=== PATIENT | male | born 1995 | race African-American/Black ===

== ENCOUNTER 2020-04-15 17:19 | Inpatient (IN) | payer BC ==
[~2020-04-15] VITALS: Ht 195.6 cm; Wt 76.2 kg
[2020-04-15] MEDS ORDERED: ALBUTEROL (0.083%) 2.5MG/3ML NEB HHN STA (17:34)
[2020-04-15] MEDS ORDERED: METHYLPREDNISOLONE SOD SUCC 125 MG/2 ML VIAL IV STA (17:34)
[2020-04-15] MEDS ORDERED: IPRATROPIUM BROMIDE (0.02%) 0.5MG/2.5ML NEB HHN STA (17:34)
[2020-04-15] MEDS ORDERED: SODIUM CHLORIDE 0.9% 1000ML BAG (SEPSIS BOLUS) IV ONE (17:45)
[2020-04-15 18:01] LABS: HEMATOCRIT. 26.7 % (42.0-52.0); HEMOGLOBIN. 9.2 g/dL (14.0-18.0); MEAN CORPUSCULAR HEMOGLOBIN 32.2 pg (28.0-32.0); MEAN CORPUSCULAR VOLUME 93.1 fL (80.0-94.0); MEAN PLATELET VOLUME 6.6 fl (7.4-10.4); RED BLOOD CELL COUNT 2.87 mill/uL (4.7-6.1); RED CELL DISTRIBUTION WIDTH 15.6 % (11.6-14.6)
[2020-04-15 18:04] LABS: PLATELET 1179 x1000/uL (130-400)
[2020-04-15 18:10] LABS: PROTHROMBIN TIME 10.9 sec (9.6-11.0)
[2020-04-15 18:11] LABS: CHLORIDE 95 mEq/L (98-107)
[2020-04-15 18:15] LABS: ETHANOL BLOOD < 10 mg/dL
[2020-04-15 18:21] LABS: BG BASE EXCESS -15.6 mmol/L (-2.0-2.0); BG CARBOXYHEMOGLOBIN 0.3 % (0.5-1.5); BG DEOXYHEMOGLOBIN 8.5 % (0.0-5.0); BG FRACTION INSPIRED OXYGEN 100; BG HCO3 ACT 14.9 mmol/L (22.0-26.0); BG METHEMOGLOBIN 0.4 % (0.0-1.5); BG OXYGEN SATURATION 91.4 % (92.0-98.5); BG OXYHEMOGLOBIN 90.8 % (94.0-97.0); BG PCO2 58.1 mmHg (35.0-45.0); BG PH 7.027 (7.350-7.450); BG PO2 91.3 mmHg (75.0-100.0); BG SAMPLE SITE RIGHT RADIAL; BG TOTAL HEMOGLOBIN 10.1 g/dL (12.0-18.0); BG VENT MODE MASK - BIPAP
[2020-04-15] MEDS ORDERED: AZITHROMYCIN 500 MG in DEXT 5% WATER 250 ML IV STA (18:21)
[2020-04-15 18:24] LABS: PLATELET ESTIMATE MARKEDLY INCREASED
[2020-04-15] MEDS ORDERED: CEFTRIAXONE 1 G PREMIX 50 ML IV ONE (18:30)
[2020-04-15] MEDS ORDERED: VANCOMYCIN 1 G PREMIX 200 ML IV SCH (18:30)
[2020-04-15] MEDS ORDERED: PROPOFOL 10MG/ML 100ML 100 ML IV ONE (19:00)
[2020-04-15] MEDS ORDERED: ETOMIDATE 2MG/ML 10ML VIAL IV ONE ×2 (19:00)
[2020-04-15] MEDS ORDERED: VECURONIUM BROMIDE 10 MG/VIAL IV ONE ×2 (19:00)
[2020-04-15] MEDS ORDERED: SODIUM BICARBONATE 8.4% 1 MEQ/ML 50ML SYR IV ONE ×3 (19:00→21:15)
[2020-04-15] MEDS ORDERED: ATROPINE SULFATE 1MG/10ML SYR ONE (19:00)
[2020-04-15] MEDS ORDERED: EPINEPHRINE 0.1MG/ML (1:10,000) 10ML SYR ONE (19:00)
[2020-04-15 19:13] LABS: CLARITY URINE CLOUDY (CLEAR); COLOR URINE YELLOW (YELLOW); KETONES URINE NEGATIVE (NEGATIVE); LEUKOCYTE ESTERASE URINE 2+ (NEGATIVE); NITRITE URINE NEGATIVE (NEGATIVE); OCCULT BLOOD URINE 3+ (NEGATIVE); PROTEIN URINE 2+ (NEGATIVE); SPECIFIC GRAVITY URINE 1.017 (1.005-1.030); UROBILINOGEN URINE 0.2 E.U./dL (0.2-1.0)
[2020-04-15 19:41] LABS: *BARBITURATES SCREEN URINE NEGATIVE (NEGATIVE); *BENZODIAZEPINES SCREEN URINE NEGATIVE (NEGATIVE); *COCAINE SCREEN URINE NEGATIVE (NEGATIVE)
[2020-04-15 19:42] LABS: *AMPHETAMINES SCREEN URINE NEGATIVE (NEGATIVE); CANNABINOID URINE SCREEN NEGATIVE (NEGATIVE); METHADONE URINE SCREEN NEGATIVE (NEGATIVE); OPIATES URINE SCREEN NEGATIVE (NEGATIVE); PHENCYCLIDINE URINE SCREEN NEGATIVE (NEGATIVE)
[2020-04-15 20:20] LABS: BG BASE EXCESS -15.1 mmol/L (-2.0-2.0); BG CARBOXYHEMOGLOBIN 0.2 % (0.5-1.5); BG DEOXYHEMOGLOBIN 26.5 % (0.0-5.0); BG FRACTION INSPIRED OXYGEN 100; BG HCO3 ACT 17.8 mmol/L (22.0-26.0); BG METHEMOGLOBIN 0.5 % (0.0-1.5); BG OXYGEN SATURATION 73.3 % (92.0-98.5); BG OXYHEMOGLOBIN 72.8 % (94.0-97.0); BG PCO2 87.9 mmHg (35.0-45.0); BG PH 6.924 (7.350-7.450); BG PO2 60.9 mmHg (75.0-100.0); BG TOTAL HEMOGLOBIN 10.1 g/dL (12.0-18.0); BG VENT MODE VENT - AC
[2020-04-15 20:24] LABS: CREATINE KINASE MB FRACTION 43.1 ng/mL (0.5-3.6)
[2020-04-15] MEDS ORDERED: SODIUM BICARBONATE 8.4% 1 MEQ/ML 50ML SYR IV NR ×2 (21:00→21:52)
[2020-04-15] MEDS ORDERED: FUROSEMIDE 100MG/10ML VIAL IVP NR (21:00)
[2020-04-15 21:59] LABS: BG BASE EXCESS -7.9 mmol/L (-2.0-2.0); BG CARBOXYHEMOGLOBIN 0.3 % (0.5-1.5); BG DEOXYHEMOGLOBIN 24.9 % (0.0-5.0); BG FRACTION INSPIRED OXYGEN 100; BG HCO3 ACT 22.9 mmol/L (22.0-26.0); BG METHEMOGLOBIN 0.6 % (0.0-1.5); BG OXYGEN SATURATION 74.9 % (92.0-98.5); BG OXYHEMOGLOBIN 74.2 % (94.0-97.0); BG PCO2 85.2 mmHg (35.0-45.0); BG PH 7.048 (7.350-7.450); BG TOTAL HEMOGLOBIN 8.8 g/dL (12.0-18.0); BG VENT MODE VENT - AC
[2020-04-15] MEDS: PROPOFOL 10MG/ML 100ML 100 ML IV PRN (23:20)
[2020-04-16] VITALS (91 sets, daily range): BP systolic 124–187; BP diastolic 56–108
[2020-04-16] MEDS ORDERED: LIDOCAINE HCL 1% 20ML VIAL (Pyxis) INJ ONE
[2020-04-16] MEDS ORDERED: HEPARIN 1000 UNITS/ML 10ML ONE (00:01)
[2020-04-16] MEDS ORDERED: PHENYLEPHRINE 100 MG in DEXT 5% WATER 240 ML IV PRN (00:45)
[2020-04-16] MEDS: FENTANYL CITRATE/PF 1,000 MCG in SODIUM CHLORIDE 0.9% 80 ML IV PRN ×3 (01:34→14:02)
[2020-04-16] MEDS: PROPOFOL 10MG/ML 100ML 100 ML IV PRN ×5 (02:59→21:42)
[2020-04-16] MEDS ORDERED: ONDANSETRON HCL 4MG/2ML INJ IV PRN (03:30)
[2020-04-16 05:39] LABS: HEMATOCRIT. 26.8 % (42.0-52.0); MEAN CORPUSCULAR HEMOGLOBIN 31.7 pg (28.0-32.0); MEAN CORPUSCULAR VOLUME 94.6 fL (80.0-94.0); MEAN PLATELET VOLUME 6.9 fl (7.4-10.4); RED BLOOD CELL COUNT 2.83 mill/uL (4.7-6.1); RED CELL DISTRIBUTION WIDTH 15.9 % (11.6-14.6)
[2020-04-16] MEDS ORDERED: PIPERACILLIN/TAZOBACTAM 3.375 G in DEXT 5% WATER 100 ML IV SCH (06:00)
[2020-04-16 06:43] LABS: PHOSPHORUS 9.7 mg/dL (2.5-4.9)
[2020-04-16 07:22] LABS: PLATELET 1100 x1000/uL (130-400)
[2020-04-16 09:00] LABS: BG BASE EXCESS -7.4 mmol/L (-2.0-2.0); BG CARBOXYHEMOGLOBIN 0.1 % (0.5-1.5); BG DEOXYHEMOGLOBIN 16.1 % (0.0-5.0); BG FRACTION INSPIRED OXYGEN 100; BG METHEMOGLOBIN 0.5 % (0.0-1.5); BG OXYGEN SATURATION 83.8 % (92.0-98.5); BG OXYHEMOGLOBIN 83.3 % (94.0-97.0); BG PCO2 47.9 mmHg (35.0-45.0); BG PH 7.238 (7.350-7.450); BG PO2 52.7 mmHg (75.0-100.0); BG SAMPLE SITE RIGHT RADIAL; BG TOTAL HEMOGLOBIN 12.5 g/dL (12.0-18.0); BG VENT MODE VENT - AC
[2020-04-16] MEDS: PIPERACILLIN/TAZOBACTAM 2.25 G in DEXTROSE 5% WATER 50 ML IV SCH ×2 (09:33→21:40)
[2020-04-16] MEDS: PANTOPRAZOLE SODIUM 40 MG/VIAL IV SCH (09:34)
[2020-04-16 11:25] LABS: HEMATOCRIT. 26.7 % (42.0-52.0); HEMOGLOBIN. 9.1 g/dL (14.0-18.0); MEAN CORPUSCULAR HEMOGLOBIN 31.7 pg (28.0-32.0); MEAN CORPUSCULAR VOLUME 93.1 fL (80.0-94.0); MEAN PLATELET VOLUME 6.8 fl (7.4-10.4); RED BLOOD CELL COUNT 2.87 mill/uL (4.7-6.1); RED CELL DISTRIBUTION WIDTH 15.7 % (11.6-14.6)
[2020-04-16 11:41] LABS: PLATELET 1009 x1000/uL (130-400)
[2020-04-16 11:49] LABS: PHOSPHORUS 7.8 mg/dL (2.5-4.9)
[2020-04-16 13:37] LABS: PLATELET ESTIMATE MARKEDLY INCREASED
[2020-04-16 13:38] LABS: PLATELET ESTIMATE MARKEDLY INCREASED
[2020-04-16 13:52] LABS: BG BASE EXCESS -6.4 mmol/L (-2.0-2.0); BG CARBOXYHEMOGLOBIN 0.3 % (0.5-1.5); BG DEOXYHEMOGLOBIN 6.1 % (0.0-5.0); BG FRACTION INSPIRED OXYGEN 100; BG HCO3 ACT 19.7 mmol/L (22.0-26.0); BG METHEMOGLOBIN 0.1 % (0.0-1.5); BG OXYGEN SATURATION 93.9 % (92.0-98.5); BG OXYHEMOGLOBIN 93.5 % (94.0-97.0); BG PCO2 42.1 mmHg (35.0-45.0); BG PH 7.289 (7.350-7.450); BG PO2 78.5 mmHg (75.0-100.0); BG SAMPLE SITE LEFT RADIAL; BG TOTAL HEMOGLOBIN 9.1 g/dL (12.0-18.0); BG VENT MODE PRVC
[2020-04-16] MEDS: DEXAMETHASONE 4MG/ML 1ML VIAL IV SCH (14:07)
[2020-04-16] MEDS ORDERED: VANCOMYCIN 1 G PREMIX 200 ML IV NR (17:00)
[2020-04-16] MEDS: ISOSORBIDE DINITRATE 10MG TABLET PO SCH (20:41)
[2020-04-16] MEDS: HYDRALAZINE HCL 100MG TABLET PO SCH (23:36)
[2020-04-17] VITALS (86 sets, daily range): BP systolic 127–155; BP diastolic 60–94
[2020-04-17] MEDS: PROPOFOL 10MG/ML 100ML 100 ML IV PRN ×7 (01:14→23:20)
[2020-04-17] MEDS: FENTANYL CITRATE/PF 1,000 MCG in SODIUM CHLORIDE 0.9% 80 ML IV PRN ×3 (05:08→21:49)
[2020-04-17 06:12] LABS: CHLORIDE 102 mEq/L (98-107)
[2020-04-17 06:13] LABS: HEMATOCRIT. 24.9 % (42.0-52.0); HEMOGLOBIN. 8.5 g/dL (14.0-18.0); MEAN CORPUSCULAR HEMOGLOBIN 31.9 pg (28.0-32.0); MEAN CORPUSCULAR VOLUME 93.9 fL (80.0-94.0); MEAN PLATELET VOLUME 7.2 fl (7.4-10.4); PLATELET 894 x1000/uL (130-400); RED BLOOD CELL COUNT 2.65 mill/uL (4.7-6.1); RED CELL DISTRIBUTION WIDTH 16.4 % (11.6-14.6)
[2020-04-17 06:26] LABS: CREATINE KINASE 820 IU/L (39-308)
[2020-04-17 06:43] LABS: PHOSPHORUS 8.8 mg/dL (2.5-4.9)
[2020-04-17] MEDS: HYDRALAZINE HCL 100MG TABLET PO SCH ×3 (06:59→22:06)
[2020-04-17] MEDS ORDERED: FUROSEMIDE 100MG/10ML VIAL IVP SCH (09:00)
[2020-04-17] MEDS: ISOSORBIDE DINITRATE 10MG TABLET PO SCH ×3 (09:00→16:12)
[2020-04-17] MEDS: FUROSEMIDE 40MG/4ML VIAL IV SCH ×2 (09:16→22:06)
[2020-04-17] MEDS: PANTOPRAZOLE SODIUM 40 MG/VIAL IV SCH (09:16)
[2020-04-17] MEDS: DEXAMETHASONE 4MG/ML 1ML VIAL IV SCH (09:16)
[2020-04-17] MEDS: PIPERACILLIN/TAZOBACTAM 2.25 G in DEXTROSE 5% WATER 50 ML IV SCH ×2 (09:24→22:05)
[2020-04-17 10:44] LABS: PLATELET ESTIMATE INCREASED
[2020-04-17] MEDS ORDERED: SODIUM POLYSTYRENE SULFONATE 15 G/60 ML BOT NG SCH (11:00)
[2020-04-17 11:12] LABS: BG BASE EXCESS -8.8 mmol/L (-2.0-2.0); BG CARBOXYHEMOGLOBIN 0.3 % (0.5-1.5); BG DEOXYHEMOGLOBIN 2.4 % (0.0-5.0); BG FRACTION INSPIRED OXYGEN 100; BG HCO3 ACT 19.8 mmol/L (22.0-26.0); BG METHEMOGLOBIN 0.6 % (0.0-1.5); BG OXYGEN SATURATION 97.6 % (92.0-98.5); BG OXYHEMOGLOBIN 96.7 % (94.0-97.0); BG PCO2 58.1 mmHg (35.0-45.0); BG PH 7.151 (7.350-7.450); BG PO2 121.9 mmHg (75.0-100.0); BG SAMPLE SITE RIGHT RADIAL; BG TOTAL HEMOGLOBIN 9.1 g/dL (12.0-18.0); BG TOTAL RESPIRATORY RATE 29 b/min; BG VENT MODE VENT- PRVC
[2020-04-17] MEDS ORDERED: SODIUM BICARBONATE 8.4% 1 MEQ/ML 50ML SYR IV SCH (12:15)
[2020-04-17] MEDS ORDERED: PROPOFOL 10MG/ML 100ML 100 ML IV PRN (12:15)
[2020-04-17] MEDS ORDERED: DEXTROSE 50% WATER 50ML SYRINGE IV SCH (12:15)
[2020-04-17] MEDS ORDERED: INSULIN REGULAR (HUMULIN R) 300UNITS/3ML SUBCUT ONE (12:15)
[2020-04-17] MEDS ORDERED: INSULIN REGULAR (HUMULIN R) 300UNITS/3ML IV SCH (12:15)
[2020-04-17] MEDS: ENOXAPARIN 30MG/0.3ML SYR SUBCUT SCH (20:00)
[2020-04-18] VITALS (97 sets, daily range): BP systolic 125–159; BP diastolic 54–84
[2020-04-18] MEDS: PROPOFOL 10MG/ML 100ML 100 ML IV PRN ×3 (02:39→09:07)
[2020-04-18] MEDS: FENTANYL CITRATE/PF 1,000 MCG in SODIUM CHLORIDE 0.9% 80 ML IV PRN ×2 (04:07→09:05)
[2020-04-18] MEDS: HYDRALAZINE HCL 100MG TABLET PO SCH ×3 (05:15→23:35)
[2020-04-18 05:46] LABS: HEMATOCRIT. 24.3 % (42.0-52.0); HEMOGLOBIN. 8.4 g/dL (14.0-18.0); MEAN CORPUSCULAR HEMOGLOBIN 32.2 pg (28.0-32.0); MEAN PLATELET VOLUME 7.4 fl (7.4-10.4); PLATELET 908 x1000/uL (130-400); RED BLOOD CELL COUNT 2.59 mill/uL (4.7-6.1); RED CELL DISTRIBUTION WIDTH 16.2 % (11.6-14.6)
[2020-04-18 05:56] LABS: CHLORIDE 103 mEq/L (98-107)
[2020-04-18 06:25] LABS: PHOSPHORUS 8.4 mg/dL (2.5-4.9)
[2020-04-18 08:51] LABS: BG BASE EXCESS -2.8 mmol/L (-2.0-2.0); BG CARBOXYHEMOGLOBIN 0.3 % (0.5-1.5); BG DEOXYHEMOGLOBIN 0.7 % (0.0-5.0); BG FRACTION INSPIRED OXYGEN 100; BG HCO3 ACT 24.6 mmol/L (22.0-26.0); BG METHEMOGLOBIN 0.7 % (0.0-1.5); BG OXYGEN SATURATION 99.3 % (92.0-98.5); BG OXYHEMOGLOBIN 98.3 % (94.0-97.0); BG PCO2 57.2 mmHg (35.0-45.0); BG PH 7.251 (7.350-7.450); BG PO2 290.8 mmHg (75.0-100.0); BG SAMPLE SITE RIGHT RADIAL; BG TOTAL HEMOGLOBIN 8.5 g/dL (12.0-18.0); BG TOTAL RESPIRATORY RATE 30 b/min; BG VENT MODE VENT- PRVC
[2020-04-18] MEDS: DEXAMETHASONE 4MG/ML 1ML VIAL IV SCH (09:03)
[2020-04-18] MEDS: PIPERACILLIN/TAZOBACTAM 2.25 G in DEXTROSE 5% WATER 50 ML IV SCH ×2 (09:03→23:06)
[2020-04-18] MEDS: ISOSORBIDE DINITRATE 10MG TABLET PO SCH ×3 (09:03→18:25)
[2020-04-18] MEDS: FUROSEMIDE 40MG/4ML VIAL IV SCH ×2 (09:04→23:05)
[2020-04-18] MEDS: PANTOPRAZOLE SODIUM 40 MG/VIAL IV SCH (09:04)
[2020-04-18 09:29] LABS: PLATELET ESTIMATE MARKEDLY INCREASED
[2020-04-18] MEDS ORDERED: PROPOFOL 10MG/ML 100ML 100 ML IV PRN (14:00)
[2020-04-18] MEDS ORDERED: VANCOMYCIN 1 G PREMIX 200 ML IV SCH (15:00)
[2020-04-18 15:19] LABS: BG BASE EXCESS -3.4 mmol/L (-2.0-2.0); BG CARBOXYHEMOGLOBIN 0.3 % (0.5-1.5); BG DEOXYHEMOGLOBIN 0.7 % (0.0-5.0); BG FRACTION INSPIRED OXYGEN 80; BG HCO3 ACT 22.2 mmol/L (22.0-26.0); BG METHEMOGLOBIN 0.8 % (0.0-1.5); BG OXYGEN SATURATION 99.3 % (92.0-98.5); BG OXYHEMOGLOBIN 98.2 % (94.0-97.0); BG PCO2 42.5 mmHg (35.0-45.0); BG PH 7.335 (7.350-7.450); BG PO2 281.4 mmHg (75.0-100.0); BG SAMPLE SITE RIGHT RADIAL; BG TOTAL HEMOGLOBIN 7.1 g/dL (12.0-18.0); BG TOTAL RESPIRATORY RATE 34 b/min; BG VENT MODE VENT- PRVC
[2020-04-18] MEDS: DOCUSATE SODIUM SUGAR FREE 100MG/10ML UDC NG SCH (15:32)
[2020-04-18] MEDS: FENTANYL CITRATE/PF 2,500 MCG in SODIUM CHLORIDE 0.9% 200 ML IV PRN (15:33)
[2020-04-18] MEDS: MIDAZOLAM HCL 100 MG in DEXT 5% WATER 80 ML IV PRN (15:34)
[2020-04-18] MEDS ORDERED: FENTANYL CITRATE/PF 2,500 MCG in SODIUM CHLORIDE 0.9% 200 ML IV PRN (16:00)
[2020-04-18] MEDS: ENOXAPARIN 30MG/0.3ML SYR SUBCUT SCH (20:40)
[2020-04-19] VITALS (92 sets, daily range): BP systolic 126–164; BP diastolic 51–97
[2020-04-19] MEDS: MIDAZOLAM HCL 100 MG in DEXT 5% WATER 80 ML IV PRN ×3 (01:04→20:56)
[2020-04-19] MEDS: FENTANYL CITRATE/PF 2,500 MCG in SODIUM CHLORIDE 0.9% 200 ML IV PRN ×3 (04:01→23:52)
[2020-04-19 05:32] LABS: MEAN CORPUSCULAR HEMOGLOBIN 32.3 pg (28.0-32.0); MEAN CORPUSCULAR VOLUME 91.8 fL (80.0-94.0); MEAN PLATELET VOLUME 7.4 fl (7.4-10.4); PLATELET 768 x1000/uL (130-400); RED CELL DISTRIBUTION WIDTH 15.9 % (11.6-14.6)
[2020-04-19 05:43] LABS: CHLORIDE 99 mEq/L (98-107)
[2020-04-19 06:00] LABS: HEMOGLOBIN. 6.8 g/dL (14.0-18.0)
[2020-04-19 06:01] LABS: HEMATOCRIT. 19.2 % (42.0-52.0)
[2020-04-19] MEDS: HYDRALAZINE HCL 100MG TABLET PO SCH ×3 (06:42→21:39)
[2020-04-19 09:14] LABS: BG CARBOXYHEMOGLOBIN 0.3 % (0.5-1.5); BG DEOXYHEMOGLOBIN 1.3 % (0.0-5.0); BG FRACTION INSPIRED OXYGEN 50; BG HCO3 ACT 25.3 mmol/L (22.0-26.0); BG METHEMOGLOBIN 0.3 % (0.0-1.5); BG OXYGEN SATURATION 98.7 % (92.0-98.5); BG OXYHEMOGLOBIN 98.1 % (94.0-97.0); BG PCO2 38.8 mmHg (35.0-45.0); BG PH 7.433 (7.350-7.450); BG SAMPLE SITE RIGHT RADIAL; BG TOTAL HEMOGLOBIN 7.9 g/dL (12.0-18.0); BG VENT MODE PRVC
[2020-04-19] MEDS: DOCUSATE SODIUM SUGAR FREE 100MG/10ML UDC NG SCH (09:26)
[2020-04-19] MEDS: DEXAMETHASONE 4MG/ML 1ML VIAL IV SCH (09:26)
[2020-04-19] MEDS: PANTOPRAZOLE SODIUM 40 MG/VIAL IV SCH (09:26)
[2020-04-19] MEDS: FUROSEMIDE 40MG/4ML VIAL IV SCH ×2 (09:27→21:39)
[2020-04-19] MEDS: PIPERACILLIN/TAZOBACTAM 2.25 G in DEXTROSE 5% WATER 50 ML IV SCH ×2 (09:27→21:39)
[2020-04-19] MEDS: ISOSORBIDE DINITRATE 10MG TABLET PO SCH ×3 (09:27→17:38)
[2020-04-19] MEDS ORDERED: LACTULOSE 20G/30ML UDC PO NR (09:45)
[2020-04-19 10:54] LABS: PLATELET ESTIMATE MARKEDLY INCREASED
[2020-04-19 18:41] LABS: BG BASE EXCESS 0.3 mmol/L (-2.0-2.0); BG CARBOXYHEMOGLOBIN 0.3 % (0.5-1.5); BG DEOXYHEMOGLOBIN 2.3 % (0.0-5.0); BG FRACTION INSPIRED OXYGEN 50; BG OXYGEN SATURATION 97.7 % (92.0-98.5); BG OXYHEMOGLOBIN 97.4 % (94.0-97.0); BG PCO2 47.1 mmHg (35.0-45.0); BG PH 7.359 (7.350-7.450); BG PO2 106.8 mmHg (75.0-100.0); BG SAMPLE SITE RIGHT BRACHIAL; BG TOTAL HEMOGLOBIN 7.6 g/dL (12.0-18.0); BG VENT MODE PRVC
[2020-04-20] VITALS (96 sets, daily range): BP systolic 141–185; BP diastolic 67–137
[2020-04-20] MEDS: HYDRALAZINE HCL 100MG TABLET PO SCH ×3 (05:07→21:09)
[2020-04-20] MEDS: MIDAZOLAM HCL 100 MG in DEXT 5% WATER 80 ML IV PRN ×2 (05:08→15:30)
[2020-04-20 05:58] LABS: HEMATOCRIT. 22.6 % (42.0-52.0); HEMOGLOBIN. 7.8 g/dL (14.0-18.0); MEAN CORPUSCULAR HEMOGLOBIN 31.4 pg (28.0-32.0); MEAN CORPUSCULAR VOLUME 91.5 fL (80.0-94.0); MEAN PLATELET VOLUME 7.5 fl (7.4-10.4); PLATELET 889 x1000/uL (130-400); RED BLOOD CELL COUNT 2.47 mill/uL (4.7-6.1); RED CELL DISTRIBUTION WIDTH 15.7 % (11.6-14.6)
[2020-04-20 06:15] LABS: CHLORIDE 100 mEq/L (98-107)
[2020-04-20 06:22] LABS: PHOSPHORUS 6.9 mg/dL (2.5-4.9)
[2020-04-20 06:25] LABS: CREATINE KINASE 193 IU/L (39-308)
[2020-04-20 07:01] LABS: BG BASE EXCESS 0.2 mmol/L (-2.0-2.0); BG CARBOXYHEMOGLOBIN 0.3 % (0.5-1.5); BG DEOXYHEMOGLOBIN 6.3 % (0.0-5.0); BG FRACTION INSPIRED OXYGEN 50; BG HCO3 ACT 25.4 mmol/L (22.0-26.0); BG METHEMOGLOBIN 1.2 % (0.0-1.5); BG OXYGEN SATURATION 93.6 % (92.0-98.5); BG OXYHEMOGLOBIN 92.2 % (94.0-97.0); BG PCO2 44.3 mmHg (35.0-45.0); BG PH 7.377 (7.350-7.450); BG PO2 75.5 mmHg (75.0-100.0); BG SAMPLE SITE RIGHT RADIAL; BG TOTAL HEMOGLOBIN 8.5 g/dL (12.0-18.0); BG VENT MODE PRVC
[2020-04-20] MEDS: FENTANYL CITRATE/PF 2,500 MCG in SODIUM CHLORIDE 0.9% 200 ML IV PRN (09:48)
[2020-04-20] MEDS: ISOSORBIDE DINITRATE 10MG TABLET PO SCH ×3 (09:51→17:29)
[2020-04-20] MEDS: FUROSEMIDE 40MG/4ML VIAL IV SCH ×2 (09:51→21:09)
[2020-04-20] MEDS: PIPERACILLIN/TAZOBACTAM 2.25 G in DEXTROSE 5% WATER 50 ML IV SCH ×2 (09:51→21:09)
[2020-04-20] MEDS: PANTOPRAZOLE SODIUM 40 MG/VIAL IV SCH (09:51)
[2020-04-20] MEDS: DOCUSATE SODIUM SUGAR FREE 100MG/10ML UDC NG SCH ×2 (09:51→14:50)
[2020-04-20 11:22] LABS: NUCLEATED RED BLOOD CELLS 1 /100 WBC
[2020-04-20 11:24] LABS: PLATELET ESTIMATE MARKEDLY INCREASED
[2020-04-20] MEDS ORDERED: BISACODYL 10MG SUPP PR SCH (12:00)
[2020-04-20] MEDS: DOXYCYCLINE 100 MG in DEXT 5% WATER 100 ML IV SCH (22:19)
[2020-04-21] VITALS (90 sets, daily range): BP systolic 115–203; BP diastolic 52–106
[2020-04-21] MEDS: MIDAZOLAM HCL 100 MG in DEXT 5% WATER 80 ML IV PRN ×2 (00:07→09:02)
[2020-04-21] MEDS: FENTANYL CITRATE/PF 2,500 MCG in SODIUM CHLORIDE 0.9% 200 ML IV PRN ×2 (01:00→09:07)
[2020-04-21] MEDS: HYDRALAZINE HCL 100MG TABLET PO SCH ×3 (05:12→21:05)
[2020-04-21 05:50] LABS: HEMATOCRIT. 22.7 % (42.0-52.0); HEMOGLOBIN. 7.9 g/dL (14.0-18.0); MEAN CORPUSCULAR HEMOGLOBIN 31.8 pg (28.0-32.0); MEAN CORPUSCULAR VOLUME 91.7 fL (80.0-94.0); MEAN PLATELET VOLUME 7.2 fl (7.4-10.4); PLATELET 833 x1000/uL (130-400); RED BLOOD CELL COUNT 2.47 mill/uL (4.7-6.1); RED CELL DISTRIBUTION WIDTH 15.4 % (11.6-14.6)
[2020-04-21] MEDS ORDERED: ENALAPRIL 1.25MG/ML VIAL 1ML IV PRN (06:00)
[2020-04-21 06:13] LABS: PHOSPHORUS 5.7 mg/dL (2.5-4.9)
[2020-04-21 07:21] LABS: PLATELET ESTIMATE INCREASED
[2020-04-21] MEDS: FUROSEMIDE 40MG/4ML VIAL IV SCH ×2 (08:52→21:05)
[2020-04-21] MEDS: PANTOPRAZOLE SODIUM 40 MG/VIAL IV SCH (08:52)
[2020-04-21] MEDS: AMLODIPINE 10MG TABLET PO SCH (08:53)
[2020-04-21] MEDS: DOCUSATE SODIUM SUGAR FREE 100MG/10ML UDC NG SCH (08:53)
[2020-04-21] MEDS: ISOSORBIDE DINITRATE 10MG TABLET PO SCH ×3 (08:53→17:45)
[2020-04-21] MEDS: DOXYCYCLINE 100 MG in DEXT 5% WATER 100 ML IV SCH ×2 (08:54→21:05)
[2020-04-21 09:07] LABS: BG BASE EXCESS 0.1 mmol/L (-2.0-2.0); BG CARBOXYHEMOGLOBIN 0.3 % (0.5-1.5); BG DEOXYHEMOGLOBIN 0.8 % (0.0-5.0); BG FRACTION INSPIRED OXYGEN 60; BG METHEMOGLOBIN 0.5 % (0.0-1.5); BG OXYGEN SATURATION 99.2 % (92.0-98.5); BG OXYHEMOGLOBIN 98.4 % (94.0-97.0); BG PH 7.351 (7.350-7.450); BG PO2 219.1 mmHg (75.0-100.0); BG SAMPLE SITE RIGHT RADIAL; BG TOTAL RESPIRATORY RATE 18 b/min; BG VENT MODE VENT- PRVC
[2020-04-21] MEDS: PIPERACILLIN/TAZOBACTAM 2.25 G in DEXTROSE 5% WATER 50 ML IV SCH ×2 (10:27→21:05)
[2020-04-21] MEDS ORDERED: ENALAPRIL 2.5MG/2ML VIAL 2ML IV PRN (12:00)
[2020-04-22] VITALS (27 sets, daily range): BP systolic 108–169; BP diastolic 55–114
[2020-04-22 04:50] LABS: HEMATOCRIT. 22.4 % (42.0-52.0); HEMOGLOBIN. 7.7 g/dL (14.0-18.0); MEAN CORPUSCULAR HEMOGLOBIN 31.3 pg (28.0-32.0); MEAN PLATELET VOLUME 7.1 fl (7.4-10.4); PLATELET 826 x1000/uL (130-400); RED BLOOD CELL COUNT 2.46 mill/uL (4.7-6.1); RED CELL DISTRIBUTION WIDTH 14.9 % (11.6-14.6)
[2020-04-22 05:04] LABS: PHOSPHORUS 6.8 mg/dL (2.5-4.9)
[2020-04-22] MEDS: HYDRALAZINE HCL 100MG TABLET PO SCH ×3 (05:09→20:39)
[2020-04-22 07:16] LABS: PLATELET ESTIMATE MARKEDLY INCREASED
[2020-04-22] MEDS: ISOSORBIDE DINITRATE 10MG TABLET PO SCH ×2 (09:00→13:00)
[2020-04-22] MEDS: DOCUSATE SODIUM SUGAR FREE 100MG/10ML UDC NG SCH (09:00)
[2020-04-22] MEDS: DOXYCYCLINE 100 MG in DEXT 5% WATER 100 ML IV SCH ×2 (09:00→20:38)
[2020-04-22] MEDS: AMLODIPINE 10MG TABLET PO SCH (11:44)
[2020-04-22] MEDS: PANTOPRAZOLE SODIUM 40 MG/VIAL IV SCH (11:44)
[2020-04-22] MEDS: FUROSEMIDE 40MG/4ML VIAL IV SCH ×2 (11:44→20:39)
[2020-04-23] VITALS (15 sets, daily range): BP systolic 119–159; BP diastolic 59–103
[2020-04-23] MEDS: HYDRALAZINE HCL 100MG TABLET PO SCH ×3 (05:57→21:04)
[2020-04-23 06:37] LABS: HEMATOCRIT. 24.3 % (42.0-52.0); HEMOGLOBIN. 8.1 g/dL (14.0-18.0); MEAN CORPUSCULAR HEMOGLOBIN 30.6 pg (28.0-32.0); MEAN CORPUSCULAR VOLUME 91.4 fL (80.0-94.0); MEAN PLATELET VOLUME 7.5 fl (7.4-10.4); PLATELET 833 x1000/uL (130-400); RED BLOOD CELL COUNT 2.66 mill/uL (4.7-6.1); RED CELL DISTRIBUTION WIDTH 15.4 % (11.6-14.6)
[2020-04-23 07:02] LABS: FOLIC ACID (FOLATE) SERUM 5.2 ng/mL (>5.38)
[2020-04-23 07:08] LABS: HEPATITIS B SURFACE ANTIGEN NEGATIVE
[2020-04-23 07:16] LABS: HEPATITIS B SURFACE AB 9.4 mIU/mL
[2020-04-23 07:28] LABS: PHOSPHORUS 4.2 mg/dL (2.5-4.9)
[2020-04-23 08:24] LABS: PLATELET ESTIMATE MARKEDLY INCREASED
[2020-04-23] MEDS: PANTOPRAZOLE SODIUM 40 MG/VIAL IV SCH (08:42)
[2020-04-23] MEDS: DOCUSATE SODIUM SUGAR FREE 100MG/10ML UDC NG SCH (08:42)
[2020-04-23] MEDS: DOXYCYCLINE 100 MG in DEXT 5% WATER 100 ML IV SCH (08:42)
[2020-04-23] MEDS: AMLODIPINE 10MG TABLET PO SCH (08:43)
[2020-04-23] MEDS: FUROSEMIDE 100MG/10ML VIAL IV SCH ×2 (08:43→21:02)
[2020-04-23] MEDS: ISOSORBIDE DINITRATE 10MG TABLET PO SCH ×3 (08:43→18:03)
[2020-04-23] MEDS ORDERED: VANCOMYCIN 1500MG in DEXTROSE 5% WATER 250ML IV NR (12:30)
[2020-04-23] MEDS: CEFEPIME 2,000 MG in DEXT 5% WATER 100 ML IV SCH (15:57)
[2020-04-23] MEDS: GUAIFENESIN-DM 200MG-20MG/10ML UDC PO PRN (18:22)
[2020-04-24] VITALS (9 sets, daily range): BP systolic 125–151; BP diastolic 65–87
[2020-04-24 05:43] LABS: HEMATOCRIT. 23.2 % (42.0-52.0); HEMOGLOBIN. 7.8 g/dL (14.0-18.0); MEAN CORPUSCULAR HEMOGLOBIN 30.5 pg (28.0-32.0); MEAN CORPUSCULAR VOLUME 90.4 fL (80.0-94.0); MEAN PLATELET VOLUME 7.1 fl (7.4-10.4); PLATELET 751 x1000/uL (130-400); RED BLOOD CELL COUNT 2.57 mill/uL (4.7-6.1); RED CELL DISTRIBUTION WIDTH 15.2 % (11.6-14.6)
[2020-04-24 06:12] LABS: PHOSPHORUS 5.1 mg/dL (2.5-4.9)
[2020-04-24] MEDS: HYDRALAZINE HCL 100MG TABLET PO SCH ×3 (07:24→22:20)
[2020-04-24] MEDS: GUAIFENESIN-DM 200MG-20MG/10ML UDC PO PRN ×3 (08:31→22:19)
[2020-04-24] MEDS: PANTOPRAZOLE SODIUM 40 MG/VIAL IV SCH (08:32)
[2020-04-24] MEDS: FUROSEMIDE 100MG/10ML VIAL IV SCH ×2 (08:32→22:20)
[2020-04-24] MEDS: CEFEPIME 2,000 MG in DEXT 5% WATER 100 ML IV SCH (08:33)
[2020-04-24] MEDS: DOCUSATE SODIUM SUGAR FREE 100MG/10ML UDC NG SCH (09:00)
[2020-04-24] MEDS: AMLODIPINE 10MG TABLET PO SCH (09:00)
[2020-04-24] MEDS: ISOSORBIDE DINITRATE 20MG TABLET PO SCH ×3 (09:00→18:00)
[2020-04-24] MEDS: FOLIC ACID 1MG TABLET PO SCH (13:00)
[2020-04-24] MEDS ORDERED: HEPARIN SODIUM 1,000 UNIT/1ML VIAL IV NR (15:45)
[2020-04-24 15:48] LABS: PLATELET ESTIMATE INCREASED
[2020-04-24] MEDS ORDERED: VANCOMYCIN 500 MG PREMIX 100 ML IV SCH (17:00)
[2020-04-25] VITALS (9 sets, daily range): BP systolic 126–177; BP diastolic 56–87
[2020-04-25] MEDS ORDERED: DIATR MEGLU/DIATRIZOATE SOLN 30ML PO SCH
[2020-04-25 05:40] LABS: HEMATOCRIT. 22.9 % (42.0-52.0); HEMOGLOBIN. 7.8 g/dL (14.0-18.0); MEAN CORPUSCULAR HEMOGLOBIN 31.1 pg (28.0-32.0); MEAN CORPUSCULAR VOLUME 91.3 fL (80.0-94.0); MEAN PLATELET VOLUME 7.4 fl (7.4-10.4); PLATELET 666 x1000/uL (130-400); RED BLOOD CELL COUNT 2.51 mill/uL (4.7-6.1); RED CELL DISTRIBUTION WIDTH 15.5 % (11.6-14.6)
[2020-04-25 05:49] LABS: PHOSPHORUS 4.9 mg/dL (2.5-4.9)
[2020-04-25] MEDS: HYDRALAZINE HCL 100MG TABLET PO SCH ×3 (06:16→21:01)
[2020-04-25] MEDS: GUAIFENESIN-DM 200MG-20MG/10ML UDC PO PRN ×2 (06:16→14:02)
[2020-04-25] MEDS: DOCUSATE SODIUM SUGAR FREE 100MG/10ML UDC NG SCH (09:00)
[2020-04-25] MEDS: AMLODIPINE 10MG TABLET PO SCH (13:56)
[2020-04-25] MEDS: FOLIC ACID 1MG TABLET PO SCH (13:56)
[2020-04-25] MEDS: CEFEPIME 2,000 MG in DEXT 5% WATER 100 ML IV SCH (13:58)
[2020-04-25] MEDS: ISOSORBIDE DINITRATE 20MG TABLET PO SCH ×2 (14:02→17:55)
[2020-04-25] MEDS: PANTOPRAZOLE SODIUM 40 MG/VIAL IV SCH (14:03)
[2020-04-25] MEDS ORDERED: POTASSIUM CHLORIDE 20MEQ TABLET SR PO NR (20:15)
[2020-04-25 21:44] LABS: PLATELET ESTIMATE INCREASED
[2020-04-26] VITALS (9 sets, daily range): BP systolic 122–150; BP diastolic 45–115
[2020-04-26 05:59] LABS: BASOPHILS % 0.7 % (0.0-2.0); EOSINOPHILS % 4.9 % (0.0-5.0); HEMATOCRIT. 21.8 % (42.0-52.0); HEMOGLOBIN. 7.4 g/dL (14.0-18.0); LYMPHOCYTES % 12.8 % (20.0-50.0); MEAN CORPUSCULAR HEMOGLOBIN 30.9 pg (28.0-32.0); MEAN CORPUSCULAR VOLUME 91.5 fL (80.0-94.0); MEAN PLATELET VOLUME 7.2 fl (7.4-10.4); NEUTROPHILS % 68.6 % (40.0-76.0); PLATELET 573 x1000/uL (130-400); RED BLOOD CELL COUNT 2.39 mill/uL (4.7-6.1); RED CELL DISTRIBUTION WIDTH 15.3 % (11.6-14.6)
[2020-04-26 06:16] LABS: PHOSPHORUS 6.4 mg/dL (2.5-4.9)
[2020-04-26] MEDS: HYDRALAZINE HCL 100MG TABLET PO SCH (06:20)
[2020-04-26] MEDS: CEFEPIME 2,000 MG in DEXT 5% WATER 100 ML IV SCH (08:18)
[2020-04-26] MEDS: PANTOPRAZOLE SODIUM 40 MG/VIAL IV SCH (08:18)
[2020-04-26] MEDS: FOLIC ACID 1MG TABLET PO SCH (08:19)
[2020-04-26] MEDS: DOCUSATE SODIUM SUGAR FREE 100MG/10ML UDC NG SCH (08:19)
[2020-04-26] MEDS: ISOSORBIDE DINITRATE 20MG TABLET PO SCH (08:23)
[2020-04-26] MEDS: AMLODIPINE 10MG TABLET PO SCH (08:23)
[2020-04-26] MEDS: FUROSEMIDE 40MG TABLET PO SCH (08:24)
[2020-04-26] MEDS: ISOSORBIDE MONONITRATE 30MG TABLET SR 24HR PO SCH (10:02)
[2020-04-26] MEDS ORDERED: CLONIDINE HCL 0.2MG/24HR PATCH TD SCH (12:00)
[2020-04-26] MEDS ORDERED: HYDRALAZINE HCL 100MG TABLET PO SCH (21:00)
[2020-04-27] VITALS (20 sets, daily range): BP systolic 112–165; BP diastolic 19–96
[2020-04-27 05:09] LABS: HIV SCREEN 4G Non Reactive (Non Reactive)
[2020-04-27] MEDS: DOCUSATE SODIUM SUGAR FREE 100MG/10ML UDC NG SCH (08:30)
[2020-04-27] MEDS: CEFEPIME 2,000 MG in DEXT 5% WATER 100 ML IV SCH (08:30)
[2020-04-27] MEDS: PANTOPRAZOLE SODIUM 40 MG/VIAL IV SCH (08:30)
[2020-04-27] MEDS: FOLIC ACID 1MG TABLET PO SCH (08:30)
[2020-04-27] MEDS: HYDRALAZINE HCL 50MG TABLET PO SCH ×2 (08:31→21:00)
[2020-04-27] MEDS: FUROSEMIDE 40MG TABLET PO SCH (08:31)
[2020-04-27] MEDS: AMLODIPINE 10MG TABLET PO SCH (08:31)
[2020-04-27] MEDS: ISOSORBIDE MONONITRATE 30MG TABLET SR 24HR PO SCH (08:31)
[2020-04-27 09:14] LABS: BASOPHILS % 1.1 % (0.0-2.0); EOSINOPHILS % 4.1 % (0.0-5.0); HEMATOCRIT. 22.2 % (42.0-52.0); HEMOGLOBIN. 7.6 g/dL (14.0-18.0); LYMPHOCYTES % 13.7 % (20.0-50.0); MEAN CORPUSCULAR HEMOGLOBIN 31.4 pg (28.0-32.0); MEAN CORPUSCULAR VOLUME 91.5 fL (80.0-94.0); MEAN PLATELET VOLUME 7.2 fl (7.4-10.4); MONOCYTES % 14.1 % (2.0-8.0); PLATELET 585 x1000/uL (130-400); RED BLOOD CELL COUNT 2.43 mill/uL (4.7-6.1); RED CELL DISTRIBUTION WIDTH 15.6 % (11.6-14.6)
[2020-04-27] MEDS ORDERED: SODIUM BICARBONATE 4% (2.4MEQ) 5ML VIAL IV ONE (12:49)
[2020-04-27] MEDS ORDERED: LIDOCAINE HCL 1% 20ML VIAL (Pyxis) INJ ONE (12:50)
[2020-04-27] MEDS ORDERED: HEPARIN 1000 UNITS/ML 10ML ONE (12:50)
[2020-04-27] MEDS ORDERED: VANCOMYCIN 1 G PREMIX 200 ML IV SCH (13:00)
[2020-04-27] MEDS ORDERED: FENTANYL CITRATE/PF 50MCG/ML 2ML VIAL ONE (13:23)
[2020-04-27] MEDS ORDERED: FENTANYL CITRATE/PF 50MCG/ML 2ML VIAL IV ONE (13:45)
[2020-04-28] VITALS: BP 154/88
[2020-04-28 04:00] VITALS: BP 136/68
[2020-04-28 06:30] LABS: EOSINOPHILS % 3.6 % (0.0-5.0); HEMATOCRIT. 23.1 % (42.0-52.0); LYMPHOCYTES % 14.6 % (20.0-50.0); MEAN CORPUSCULAR HEMOGLOBIN 31.8 pg (28.0-32.0); MEAN PLATELET VOLUME 7.1 fl (7.4-10.4); MONOCYTES % 14.1 % (2.0-8.0); NEUTROPHILS % 65.7 % (40.0-76.0); PLATELET 555 x1000/uL (130-400); RED BLOOD CELL COUNT 2.51 mill/uL (4.7-6.1); RED CELL DISTRIBUTION WIDTH 15.1 % (11.6-14.6)
[2020-04-28 08:00] VITALS: BP 140/64
[2020-04-28] MEDS: FUROSEMIDE 40MG TABLET PO SCH (08:36)
[2020-04-28] MEDS: ISOSORBIDE MONONITRATE 30MG TABLET SR 24HR PO SCH (08:36)
[2020-04-28] MEDS: FOLIC ACID 1MG TABLET PO SCH (08:36)
[2020-04-28] MEDS: AMLODIPINE 10MG TABLET PO SCH (08:37)
[2020-04-28] MEDS: DOCUSATE SODIUM SUGAR FREE 100MG/10ML UDC NG SCH (08:37)
[2020-04-28] MEDS: HYDRALAZINE HCL 50MG TABLET PO SCH (08:37)
[2020-04-28] MEDS: PANTOPRAZOLE SODIUM 40 MG/VIAL IV SCH (08:37)
[2020-04-28] MEDS ORDERED: CLON1PAT11 TD (08:39)
[2020-04-28] MEDS ORDERED: HYDR-4135 PO (08:39)
[2020-04-28] MEDS ORDERED: AMLO10TA80 PO (08:39)
[2020-04-28] MEDS ORDERED: QUET50TA MT (11:35)
[2020-04-28 12:00] VITALS: BP 130/58
[2020-04-28 15:16] VITALS: BP 111/65
[2020-04-28 15:45] VITALS: BP 111/65
== END 2020-04-28 15:50 | disposition home or self-care (01) | DRG 870 ==
LOC: ER 18:33 → MICUSO 19:52 → EDBEDREQTM 19:54 → EDBEDREQ 19:54 → ENRESERV 20:55 → MICUNO 04-17 08:20 → 5EST 04-22 14:39
PROVIDERS: ADMIT Internal Medicine; ATTEND Internal Medicine
PROC: 0BH17EZ Insertion of Endotracheal Airway into Trachea, Via Natural or Artificial Opening (ICD-10-PCS; 2020-04-15)
PROC: 02HV33Z Insertion of Infusion Device into Superior Vena Cava, Percutaneous Approach (ICD-10-PCS; 2020-04-15)
PROC: B543ZZA Ultrasonography of Right Jugular Veins, Guidance (ICD-10-PCS; 2020-04-15)
PROC: 5A1D70Z Performance of Urinary Filtration, Intermittent, Less than 6 Hours Per Day (ICD-10-PCS; 2020-04-15)
PROC: 5A12012 Performance of Cardiac Output, Single, Manual (ICD-10-PCS; 2020-04-15)
PROC: 5A1D70Z Performance of Urinary Filtration, Intermittent, Less than 6 Hours Per Day (ICD-10-PCS; 2020-04-16)
PROC: 5A1D70Z Performance of Urinary Filtration, Intermittent, Less than 6 Hours Per Day (ICD-10-PCS; 2020-04-17)
PROC: 5A1D70Z Performance of Urinary Filtration, Intermittent, Less than 6 Hours Per Day (ICD-10-PCS; 2020-04-20)
PROC: 5A1D70Z Performance of Urinary Filtration, Intermittent, Less than 6 Hours Per Day (ICD-10-PCS; 2020-04-21)
PROC: 5A1D70Z Performance of Urinary Filtration, Intermittent, Less than 6 Hours Per Day (ICD-10-PCS; 2020-04-26)
PROC: 0JH63XZ Insertion of Tunneled Vascular Access Device into Chest Subcutaneous Tissue and Fascia, Percutaneous Approach (ICD-10-PCS; principal; 2020-04-27)
PROC: 5A1955Z Respiratory Ventilation, Greater than 96 Consecutive Hours (ICD-10-PCS; 2020-04-27)
PROC: 02HV33Z Insertion of Infusion Device into Superior Vena Cava, Percutaneous Approach (ICD-10-PCS; 2020-04-27)
PROC: B5181ZA Fluoroscopy of Superior Vena Cava using Low Osmolar Contrast, Guidance (ICD-10-PCS; 2020-04-27)
DX: A41.9 Sepsis, unspecified organism (principal); J96.01 Acute respiratory failure with hypoxia; K72.00 Acute and subacute hepatic failure without coma; I50.31 Acute diastolic (congestive) heart failure; G92 Toxic encephalopathy; I21.4 Non-ST elevation (NSTEMI) myocardial infarction; I46.9 Cardiac arrest, cause unspecified; J69.0 Pneumonitis due to inhalation of food and vomit; K85.20 Alcohol induced acute pancreatitis without necrosis or infection; N18.6 End stage renal disease; K85.90 Acute pancreatitis without necrosis or infection, unspecified; E44.0 Moderate protein-calorie malnutrition; E87.1 Hypo-osmolality and hyponatremia; E87.4 Mixed disorder of acid-base balance; I13.2 Hypertensive heart and chronic kidney disease with heart failure and with stage 5 chronic kidney disease, or end stage renal disease; M62.82 Rhabdomyolysis; N17.9 Acute kidney failure, unspecified; N39.0 Urinary tract infection, site not specified; D68.69 Other thrombophilia; Z68.1 Body mass index [BMI] 19.9 or less, adult; E87.2 Acidosis; B96.89 Other specified bacterial agents as the cause of diseases classified elsewhere; E83.41 Hypermagnesemia; E87.5 Hyperkalemia; B96.5 Pseudomonas (aeruginosa) (mallei) (pseudomallei) as the cause of diseases classified elsewhere; D64.9 Anemia, unspecified; D72.810 Lymphocytopenia; E78.1 Pure hyperglyceridemia; E83.39 Other disorders of phosphorus metabolism; F17.200 Nicotine dependence, unspecified, uncomplicated; I16.0 Hypertensive urgency; K76.0 Fatty (change of) liver, not elsewhere classified; F15.11 Other stimulant abuse, in remission; Y84.1 Kidney dialysis as the cause of abnormal reaction of the patient, or of later complication, without mention of misadventure at the time of the procedure; Z20.828 Contact with and (suspected) exposure to other viral communicable diseases; Z82.49 Family history of ischemic heart disease and other diseases of the circulatory system; Z86.2 Personal history of diseases of the blood and blood-forming organs and certain disorders involving the immune mechanism; Z91.14 Patient's other noncompliance with medication regimen; Z91.15 Patient's noncompliance with renal dialysis; Z91.19 Patient's noncompliance with other medical treatment and regimen; Z99.2 Dependence on renal dialysis; Z79.899 Other long term (current) drug therapy; D69.6 Thrombocytopenia, unspecified; F19.10 Other psychoactive substance abuse, uncomplicated
CPT/HCPCS: 36415; 36556; 36558; 36589; 36600; 71045; 71250; 76937; 77001; 80048; 80053; 80076; 80202; 80305; 80320; 81003; 82140; 82248; 82270; 82375; 82550; 82553; 82607; 82728; 82746; 82805; 82962; 83540; 83550; 83605; 83735; 83880; 84100; 84145; 84478; 84484; 85025; 86705; 86706; 86803; 86850; 86900; 86920; 87070; 87077; 87186; 87340; 87389; 87635; 93005; 93306; 93970; 94002; 94003; 94640; 94660; 99152; 99153; 99291; C1750; C1752; C1769; C9113; J0456; J0461; J0692; J0696; J1100; J1644; J1650; J1815; J1940; J2250; J2543; J2704; J2930; J3010; J3370; J3490; J7030; J7050; J7060; G0480; G0500